=== PATIENT | female | born 1990 | race American Indian/Alaskan Native ===

== ENCOUNTER 2021-02-26 08:06 | Emergency (ER) | payer SELFPAY ==
--- NOTE | 2021-02-26 08:53 | Emergency Department Report ---
ED General Adult HPI - General Chief complaint: Pain General Stated complaint: FEVER Time Seen by Provider: 02/26/21 08:29 Source: patient Mode of arrival: Ambulatory Limitations: No Limitations - History of Present Illness Initial comments: 30-year-old -Polish female patient presents with complaints of sudden onset of body aches, chills, and cough starting yesterday. She denies any past medical history. No loss of taste or smell or recent known sick contacts per patient. She states on Thursday she did go to refuse a homeless event. Patient is not vaccinated against COVID-19 or influenza. She denies any hemoptysis, shortness of breath, chest pain, nausea/vomiting/diarrhea, abdominal pain, or urinary symptoms. She states the fever at home of 100. She has not tried any medications for her symptoms. Severity scale (0 -10): 5 - Related Data Previous Rx's Medication Instructions Recorded Last Taken Type Acetaminophen [Acetaminophen TAB] 500 - 1,000 mg PO Q6HR PRN #30 02/26/21 Unknown Rx tablet Azithromycin [Zithromax Z-MONSTER] 0 mg PO DAILY 5 Days #6 tab 02/26/21 Unknown Rx predniSONE 10 mg PO BID 3 Days #6 tab 02/26/21 Unknown Rx Allergies Allergy/AdvReac Type Severity Reaction Status Date / Time No Known Allergies Allergy Verified 02/26/21 08:19 ED Review of Systems ROS: Stated complaint: FEVER Other details as noted in HPI Constitutional: chills, fever, malaise. denies: diaphoresis, weakness ENT: denies: throat pain Respiratory: cough. denies: shortness of breath Cardiovascular: denies: chest pain Gastrointestinal: denies: abdominal pain, nausea, vomiting Musculoskeletal: denies: back pain Skin: denies: rash, change in color Neurological: denies: headache Hematological/Lymphatic: denies: swollen glands ED Past Medical Hx - Medications Home Medications: Home Medications Medication Instructions Recorded Confirmed Last Taken Type Acetaminophen [Acetaminophen TAB] 500 - 1,000 mg PO Q6HR PRN #30 02/26/21 Unknown Rx tablet Azithromycin [Zithromax Z-MONSTER] 0 mg PO DAILY 5 Days #6 tab 02/26/21 Unknown Rx predniSONE 10 mg PO BID 3 Days #6 tab 02/26/21 Unknown Rx ED Physical Exam - General Limitations: No Limitations General appearance: alert, in no apparent distress - Head Head exam: Present: atraumatic, normocephalic - Eye Eye exam: Present: normal appearance - Neck Neck exam: Present: normal inspection, full ROM - Respiratory Respiratory exam: Present: rhonchi (Diffuse rhonchi noted to right lungs). Absent: respiratory distress, wheezes, stridor - Cardiovascular Cardiovascular Exam: Present: tachycardia - GI/Abdominal GI/Abdominal exam: Present: soft. Absent: distended, tenderness - Back Exam Back exam: Present: full ROM - Neurological Exam Neurological exam: Present: alert, oriented X3, normal gait - Psychiatric Psychiatric exam: Present: normal affect, normal mood - Skin Skin exam: Present: warm, dry, intact, normal color. Absent: rash, cyanosis, diaphoretic, petechiae, pallor ED Course Vital Signs 02/26/21 02/26/21 02/26/21 08:09 08:15 12:06 Temperature 99.8 F H 97.9 F Pulse Rate 122 H 112 H 82 Respiratory 18 16 Rate Blood Pressure 130/80 108/74 O2 Sat by Pulse 97 97 100 Oximetry ED Medical Decision Making - Radiology Data Radiology results: report reviewed CHEST 2 VIEWS INDICATION / CLINICAL INFORMATION: fever, tachy, abnormal breath sounds, worse on R. COMPARISON: None available. FINDINGS: SUPPORT DEVICES: None. HEART / MEDIASTINUM: No significant abnormality. LUNGS / PLEURA: No significant pulmonary or pleural abnormality. No pneumothorax. ADDITIONAL FINDINGS: No significant additional findings. IMPRESSION: 1. No acute findings. - Medical Decision Making 30-year-old -Polish female patient presents with complaints of sudden onset of body aches, chills, and cough starting yesterday. She denies any past medical history. No loss of taste or smell or recent known sick contacts per patient. She states on Thursday she did go to refuse a homeless event. Patient is not vaccinated against COVID-19 or influenza. She denies any hemoptysis, shortness of breath, chest pain, nausea/vomiting/diarrhea, abdominal pain, or urinary symptoms. She states the fever at home of 100. She has not tried any medications for her symptoms. Heart rate noted to be 122 with a temp of 99.8 upon arrival to the ED. On exam, patient has rhonchi most notable in the right lung briones. She denies shortness of breath or hemoptysis. Chest x-ray is normal. Rapid flu is negative. After Tylenol, heart rate now normal in oxygen saturation remains >95% on room air. Suspect COVID-19 infection. Recommend patient follows up outpatient for testing within the next 24 to 48 hours and self quarantine until her results are back. Given abnormal lung exam, will cover patient for pneumonia with azithromycin. Patient is otherwise well-appearing and stable for discharge home. Discussed in great detail signs and symptoms that should prompt immediate return to the ED with patient who verbalizes understanding. Critical care attestation.: If time is entered above; I have spent that time in minutes in the direct care of this critically ill patient, excluding procedure time. ED Disposition Clinical Impression: Suspected COVID-19 virus infection, Cough Disposition: HOME / SELF CARE / HOMELESS Is pt being admited?: No Condition: Stable Instructions: COVID-19, Community-Acquired Pneumonia, Adult, [id number], Prevent the Spread of COVID-19 if You Are Sick - [facility] Prescriptions: Acetaminophen [Acetaminophen TAB] 500 - 1,000 mg PO Q6HR PRN #30 tablet PRN Reason: Fever >101 predniSONE 10 mg PO BID 3 Days #6 tab Azithromycin [Zithromax Z-MONSTER] 0 mg PO DAILY 5 Days #6 tab Referrals: PRIMARY CARE, [Primary Care Provider] - 3-5 Days
[2021-02-26] MEDS: ACETAMINOPHEN 325 MG TAB PO ONE (09:00)
[2021-02-26 11:06] LABS: HCG Qualitative,Urine Negative (Negative)
[2021-02-26 11:10] LABS: Bilirubin,Urine NEG (Negative); Blood,Urine LG (Negative); Color,Urine Amber (Yellow); Mucus,Urine 3+ /HPF
--- NOTE | 2021-02-26 11:51 | XRay Report ---
CHEST 2 VIEWS INDICATION / CLINICAL INFORMATION: fever, tachy, abnormal breath sounds, worse on R. COMPARISON: None available. FINDINGS: SUPPORT DEVICES: None. HEART / MEDIASTINUM: No significant abnormality. LUNGS / PLEURA: No significant pulmonary or pleural abnormality. No pneumothorax. ADDITIONAL FINDINGS: No significant additional findings. IMPRESSION: 1. No acute findings. Signer Name: Dickson Mercado MD Signed: 02/26/2021 11:47 AM Workstation Name: [id number]
[2021-02-26 12:38] VITALS: BP 125/81
== END 2021-02-26 12:37 | disposition home or self-care (01) ==
LOC: ED 08:06
DX: R05.9 Cough, unspecified (principal); Z20.828 Contact with and (suspected) exposure to other viral communicable diseases; Z79.899 Other long term (current) drug therapy
CPT/HCPCS: 71046; 81001; 81025; 87086; 87400; 99284